=== PATIENT | male | born 1990 | race Caucasian/White ===

== ENCOUNTER 2017-01-18 17:06 | Emergency (ER) | payer BC ==
[2017-01-18 17:06] VITALS: BMI 21.5
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
[2017-01-18 20:03] VITALS: BP 120/80; PULSE 73; RESP 20; TEMP 98.7
[2017-01-18 21:57] VITALS: O2SAT 99
== END 2017-01-18 20:03 | disposition home or self-care (01) ==
LOC: C.ER 17:06
DX: S07.1XXA Crushing injury of skull, initial encounter (principal); W23.0XXA Caught, crushed, jammed, or pinched between moving objects, initial encounter; Y93.89 Activity, other specified; Y92.89 Other specified places as the place of occurrence of the external cause